=== PATIENT | female | born 1985 | race Caucasian/White ===

== ENCOUNTER 2021-08-18 22:55 | Emergency (ER) | payer MEDICAID, SELFPAY ==
[2021-08-18 22:56] VITALS: BP 163/76; PULSE 110; RESP 18; TEMP 36.8; O2SAT 96; BMI 48.4
--- NOTE | 2021-08-18 23:28 | ED.VIS.DENTA ---
HPI History of Present Illness Chief Complaint: Dental Informant: patient Narrative Narrative: 36-year-old female presents to the emergency room with facial swelling and dental pain. Patient notes that she has had some dental problems and for significant time but had a traumatic dental experience years ago that has prevented her from going to the dentist. Patient notes facial swelling dental pain on the right. No reported fevers. Painful opening of her mouth. PFSH PFSH Home Medications penicillin V potassium 500 mg PO 4X/DAY #40 tab 08/18/21 [Rx Last Taken Unknown] Allergy/AdvReac Type Severity Reaction Status Date / Time No Known Allergies Allergy Verified 08/18/21 22:58 Social History (Updated 08/18/21 @ 23:[address] Attila Garcia, DO) Smoking Status: Never smoker substance use type: does not use ROS ROS ED Constitutional Constitutional ED: Denies chills, fever(s) or weight loss Eyes Eyes: Denies change in vision or diplopia ENT ENT ED: Reports other Details: See history of present illness ; Denies ear pain, rhinorrhea or sore throat Cardiovascular Cardiovascular: Denies chest pain, orthopnea, palpitations or racing heartbeat Respiratory/Chest Respiratory/Chest: Denies cough, dyspnea or orthopnea Gastrointestinal Gastrointestinal: Denies abdominal pain, diarrhea, nausea or vomiting Genitourinary Genitourinary ED: Denies dysuria, hematuria or urinary frequency Musculoskeletal Musculoskeletal: Denies arthralgias or myalgias Integumentary Denies abscess or rash Neurologic Neurologic: Denies headache(s) or weakness Psychiatric Psychiatric: Denies anxiety, depression, suicidal ideation or suicidal thoughts Endocrine Endocrinology: Denies polydipsia, polyphagia or polyuria Allergic/Immunologic Allergic/Immunologic ED: Denies mouth swelling, tongue swelling or urticaria EXAM Physical Exam Const Vital Signs: 08/18/21 22:56 Temperature 98.2 F Temperature Source Temporal Pulse Rate 110 H Respiratory Rate 18 Blood Pressure 163/76 H Blood Pressure Mean 105 Pulse Ox 96 Oxygen Delivery Method Room Air Positive well nourished and well developed General Appearance ED: well developed HEENT Reports normocephalic, head/scalp atraumatic, TM's clear and moist mucous membranes Negative for trauma Tympanic Membrane ED: Yes TM's clear Throat: posterior oropharynx normal Eyes PERRL and EOMs intact bilaterally Neck no lymphadenopathy, supple and no JVD Neck Narrative: There is some mild right facial swelling along the maxillary region. No overlying erythema. There is no drainable abscess noted. There is tenderness on the second molar right upper. Resp normal respiratory effort and clear to auscultation bilaterally Cardio regular rate, regular rhythm and no murmurs GI normal to inspection, nondistended, normoactive bowel sounds and non-tender Palpation: soft Back/Spine no CVA tenderness and normal ROM Extremity normal to inspection General Extremety ED: Negative for edema General Extremity: Negative for edema Neuro oriented x3 and CN's II-XII intact bilaterally Sensorium / Orientation: alert Motor Exam: strength 5/5 throughout Psych mental status grossly normal Mood & Affect: Negative for depressed or tearful Skin no rashes or lesions noted and no wounds MDM MDM MDM Narrative Medical decision making narrative: Patient will be started on penicillin. Would recommend follow-up with dentistry soon as possible Discharge Plan Triage Chief Complaint: Dental ED Provider: Attila Garcia Dx/Rx/DC Orders Clinical Impression: Periapical abscess Instructions: ED Dental Abscess Prescriptions: New penicillin V potassium 500 MG tablet 500 mg PO 4X/DAY Qty: 40 RF: 0 Primary Care Provider: NOT,DEFINED Referrals: NOT,DEFINED [Primary Care Provider] - Activity Restrictions/Additional Instructions: You need to see dentistry as soon as possible. Disposition Disposition: Home, Self Care
[2021-08-18] MEDS: Penicillin Vk 250 MG Tablet 500 MG PO (23:39)
== END 2021-08-18 23:40 | disposition home or self-care (01) ==
LOC: ED 23:33
PROVIDERS: Emergency Provider Emergency Medicine; Visit Provider Emergency Medicine
DX: K04.7 Periapical abscess without sinus (principal)
CPT/HCPCS: 99281